=== PATIENT | female | born 1950 | race American Indian/Alaskan Native ===

== ENCOUNTER 2016-11-11 12:20 | Outpatient (CLI) | payer MEDICARE, OTHER ==
--- NOTE | 2016-11-11 13:25 | XRay Report ---
PA and lateral chest: Cough. The aorta is tortuous. The heart is normal in size. There is no vascular congestion. The lungs are clear and well expanded. Impression: No acute finding.
== END 2016-11-11 12:21 | disposition home or self-care (01) ==
LOC: XRAY 12:20
PROVIDERS: ATTEND Internal Medicine Nephrology
DX: R05 Cough (principal); R06.02 Shortness of breath; I12.0 Hypertensive chronic kidney disease with stage 5 chronic kidney disease or end stage renal disease; N18.6 End stage renal disease; E11.22 Type 2 diabetes mellitus with diabetic chronic kidney disease; E78.00 Pure hypercholesterolemia, unspecified; Z87.891 Personal history of nicotine dependence
CPT/HCPCS: 71020

== ENCOUNTER 2016-11-18 07:52 | Outpatient (CLI) | payer MEDICARE, OTHER ==
--- NOTE | 2016-11-18 08:44 | Cat Scan Report ---
CT scan of lumbar spine: History: Soft tissue swelling in the back. Findings: Normal height of vertebral bodies. Normal height of intervertebral disc spaces. Sclerotic articular surfaces at L3-L4, L4-5 and L5-S1. Degenerative facet joints at L3-L4, L4-5 and L5-S1. There is diffuse disc bulge noted at L4-L5 and L5-S1 being more pronounced at L4-L5. Bilateral neural foramina narrowing. Severe degenerative facet joints at L4-L5 and L5-S1. No obvious central canal spinal stenosis. No definite paravertebral mass. Impression: Degenerative lumbar spine. Diffuse disc bulge L4-L5 and L5-S1 being more pronounced at L4-L5. Bilateral neural foramina narrowing. Degenerative facet joints.
== END 2016-11-18 07:53 | disposition home or self-care (01) ==
LOC: CT 07:52
PROVIDERS: ATTEND Internal Medicine Nephrology
DX: M47.896 Other spondylosis, lumbar region (principal); I12.0 Hypertensive chronic kidney disease with stage 5 chronic kidney disease or end stage renal disease; N18.6 End stage renal disease; E11.22 Type 2 diabetes mellitus with diabetic chronic kidney disease; E78.00 Pure hypercholesterolemia, unspecified; Z87.891 Personal history of nicotine dependence
CPT/HCPCS: 72131

== ENCOUNTER 2019-07-24 06:21 | Day surgery (SDC) | payer MEDICARE, OTHER ==
[2019-07-24] MEDS ORDERED: ASPIRIN EC 325 MG TAB PO NR (06:44)
[2019-07-24 07:27] LABS: Hematocrit 36.5 % (30.3-42.9); Hemoglobin 11.8 gm/dl (10.1-14.3); Mean Corpuscular HGB Conc 32 % (30-34); Mean Corpuscular Volume 86 fl (79-97); Platelet Count 271 K/mm3 (140-440); Red Blood Count 4.24 M/mm3 (3.65-5.03); Red Cell Distribution Width 16.1 % (13.2-15.2)
[2019-07-24 07:39] LABS: Calcium 9.4 mg/dL (8.4-10.2); INR 0.88 (0.87-1.13); Partial Thromboplastin Time 29.7 Sec. (24.2-36.6)
[2019-07-24] MEDS: SODIUM CHLORIDE 0.9% 500 ML 500 ML IV SCH ×2 (07:58→08:41)
[2019-07-24] MEDS ORDERED: HEPARIN 10,000 UNITS/10 ML VIAL ONE (08:10)
[2019-07-24] MEDS ORDERED: HEPARIN/NS 5000 UNIT/500ML 1,000 ML IR ONE (08:10)
[2019-07-24] MEDS ORDERED: VERAPAMIL 5 MG/2 ML INJ ONE (08:11)
[2019-07-24] MEDS: MIDAZOLAM 2 MG/2 ML INJ ONE ×3 (08:40→09:11)
[2019-07-24] MEDS: fentaNYL 100 MCG/2 ML INJ ONE ×3 (08:40→09:11)
[2019-07-24] MEDS: LIDOCAINE (2%) 20 MG/1 ML VIAL 20 ML MDV INFILTRATI ONE ×2 (08:41→09:11)
--- NOTE | 2019-07-24 09:40 | Cardiac Catherization Report ---
INDICATION FOR PROCEDURE: The patient is a 69-year-old Afro-[place]ian female with history of hypertension, diabetes mellitus, and on hemodialysis, is scheduled for a renal transplant. As a part of the renal transplant cardiac workup was performed and had a pharmacological stress testing performed on 07/10/2019, which was found to be normal. However, as a part of the transplant protocol, she was required to have coronary angiography. Hence, she is scheduled for coronary angiography. The patient is aware of the procedure, potential complications, and alternatives of therapy available. The patient is on hemodialysis. Hence, a right femoral access was obtained. The patient is aware of the procedure, potential complications and alternatives of therapy available. DESCRIPTION OF PROCEDURE: The patient was brought to the catheterization laboratory. She was evaluated for appropriateness for moderate sedation. She was felt to be appropriate candidate and received IV Versed and fentanyl starting at 9:01 a.m. Subsequently, she was continuously monitored with pulse oximetry and EKG monitoring in addition to hemodynamic monitoring. Local anesthesia was given in the right groin area and under fluoroscopic guidance and using 5-Namibian micropuncture needle right femoral artery access was obtained and 5-Namibian sheath was introduced. A 5-Namibian multipurpose catheter was used to obtain the left ventriculogram done in NAVARRO projection using hand injection followed by angiograms of the left coronary artery and right coronary artery in multiple views. At the end of the procedure, catheter and sheath were removed. The patient tolerated the procedure well. At the end of the procedure, the patient is communicating normally and moving all the extremities and breathing normally. The patient's sedation started at 9:01 a.m. and monitoring at 9:19 a.m., manual pressure being applied in the right groin after sheath removal. No untoward complications were noted. Following findings were noted. HEMODYNAMICS: 1. Opening aortic pressure 173/70, left ventricular pressure 173/25. No gradient across the aortic valve. Estimated ejection fraction more than 65%. 2. Left ventriculogram done in NAVARRO projection showed normal sized left ventricle, normal contractility. End-diastolic and systolic volumes are normal. Estimated ejection fraction 65-70%. 3. Right coronary artery dominant vessel arises normally from right coronary cusp, angiographically smooth and normal. 4. Left coronary artery arises normally from left coronary cusp. Left main, LAD, which curves around the apex and its branches, ramus and its branches and circumflex artery and its branch are angiographically smooth and normal. 5. There is moderate amount of mitral annular calcification noted. FINAL IMPRESSION: 1. Normal sized left ventricle with normal contractility with elevated end-diastolic pressure. 2. Normal coronary anatomy. 3. Moderate mitral annular calcification noted. 4. Right femoral artery access was obtained and manual pressure was applied. No untoward complications noted. The patient will be continued on risk factor modification. JOB# [id number] GEORGE/ARIELLE CRAWLEY
--- NOTE | 2019-07-24 10:27 | Short Stay Summary ---
Short Stay Documentation Date of service: 07/24/19 - History H&P: obtained from office - Allergies and Medications Current Medications: Allergies lisinopril Allergy (Mild, Verified 07/24/19 07:03) Unknown coughimg clonidine Adverse Reaction (Verified 07/24/19 08:05) Unknown blood pressure dropped IV DYE Allergy (Severe, Uncoded 07/24/19 07:03) Unknown shut down the kidneys Home Medications Medication Instructions Recorded Confirmed Last Taken Type Rosuvastatin (Nf) [Crestor] 20 mg PO QHS 05/27/14 07/24/19 07/23/19 History Insulin Detemir (Nf) [Levemir 8 unit SQ QHS #1 ml 06/04/14 07/24/19 07/23/19 Rx Flextouch (Nf)] Folic Acid/Vit B Complex and C 0.8 mg PO DAILY 07/24/19 07/24/19 07/23/19 History [Renal Vitamin Tablet] Metoprolol [Lopressor TAB] 50 mg PO BID 07/24/19 07/24/19 07/23/19 History Micardis 80 mg PO DAILY 07/24/19 07/24/19 07/23/19 History Promethazine [Phenergan] 25 mg PO Q6HR PRN 07/24/19 07/24/19 Unknown History amLODIPine [Norvasc] 10 mg PO DAILY 07/24/19 07/24/19 07/23/19 History clonazePAM [ Klonopin] 0.5 mg PO BID PRN 07/24/19 07/24/19 07/23/19 History Active Medications Sodium Chloride (Nacl 0.9% 500 Ml) 500 mls @ 50 mls/hr IV DIRECT MARIE Stop: 07/24/19 17:59 Last Admin: 07/24/19 08:41 Dose: 50 mls/hr Documented by: - Brief post op/procedure progress note Date of procedure: 07/24/19 Pre-op diagnosis: preop Post-op diagnosis: same Procedure: [facility] - see dictated cath report Anesthesia: local Estimated blood loss: none Condition: stable - Disposition Condition at discharge: Good Disposition: DC-[id number] TO HOME OR SELFCARE - Discharge Diagnoses (1) ESRD (end stage renal disease) Status: Chronic (2) HTN (hypertension) Status: Chronic (3) Normal coronary arteries Status: Chronic (4) Diabetes mellitus Status: Chronic Short Stay Discharge Plan Activity: advance as tolerated Diet: low fat, low salt, diabetic, renal Wound: open to air, keep clean and dry, per your surgeon's advice Follow up with: PRIMARY CARE, [Primary Care Provider] - 7 Days
[2019-07-24] MEDS ORDERED: amLODIPine 10 MG TAB PO SCH (10:30)
[2019-07-24] MEDS ORDERED: METOPROLOL TARTRATE 50 MG TAB PO ONE (10:31)
[2019-07-24 11:49] LABS: Anisocytosis Few; Basophils % (Manual) 0 % (0.0-1.8); Eosinophils % (Manual) 0 % (0.0-4.3); Platelet Estimate Consistent w Auto; Total Cells Counted 100
[2019-07-24 13:47] VITALS: BP 146/71
== END 2019-07-24 14:00 | disposition home or self-care (01) ==
LOC: CATHLABREC 06:21
PROVIDERS: ATTEND Internal Medicine
DX: R07.89 Other chest pain (principal); I13.2 Hypertensive heart and chronic kidney disease with heart failure and with stage 5 chronic kidney disease, or end stage renal disease; E11.22 Type 2 diabetes mellitus with diabetic chronic kidney disease; N18.6 End stage renal disease; I50.9 Heart failure, unspecified; I42.2 Other hypertrophic cardiomyopathy; I05.8 Other rheumatic mitral valve diseases; E78.00 Pure hypercholesterolemia, unspecified; G47.30 Sleep apnea, unspecified; F41.9 Anxiety disorder, unspecified; Z76.82 Awaiting organ transplant status; Z98.890 Other specified postprocedural states; Z79.899 Other long term (current) drug therapy; Z87.891 Personal history of nicotine dependence; Z90.49 Acquired absence of other specified parts of digestive tract; Z90.710 Acquired absence of both cervix and uterus; Z99.2 Dependence on renal dialysis; Z88.8 Allergy status to other drugs, medicaments and biological substances
CPT/HCPCS: 36415; 80048; 85007; 85025; 85610; 85730; 93005; 93010; 93458; J1644; J2250; J3010; J7040; Q9967

== ENCOUNTER 2020-11-27 08:29 | Outpatient (CLI) | payer MEDICARE, OTHER ==
--- NOTE | 2020-11-27 10:36 | Ultrasound Report ---
US soft tissue abdomen limited INDICATION / CLINICAL INFORMATION: SOFT TISSUE DISORDER. COMPARISON: None available. FINDINGS: There is a hyperechoic, mildly complex nodule measuring 1.6 x 2.2 x 1.3 cm within the left inguinal a dillon of concern. No evidence of increased peripheral or internal vascularity. IMPRESSION: 1. Hyperechoic mildly complex nodule within the left inguinal area of concern. This may be a subcutan eous sebaceous cyst or hematoma. Scribed by: Scarlet Cohen RDMS, RVT Scribed: 11/27/2020 9:24 AM I have reviewed the images, agree with this report, and edited this report as needed. Signer Name: Lebron Lee MD Signed: 11/27/2020 10:32 AM Workstation Name: [id number]
== END 2020-11-27 08:30 | disposition home or self-care (01) ==
LOC: US 08:29
PROVIDERS: ATTEND Surgery
DX: R19.09 Other intra-abdominal and pelvic swelling, mass and lump (principal); M79.9 Soft tissue disorder, unspecified
CPT/HCPCS: 76700; 76705